=== PATIENT | female | born 1995 | race Caucasian/White ===

== ENCOUNTER → 2017-02-19 | Outpatient (CLI) | payer OTHER ==
[~2017-02-19] MED LIST: GLIP5TAB8 PO; LOTR1CRE3 TOPICAL; METF1000 PO
== END ==
LOC: HPND 08:18
PROVIDERS: ATTEND Obstetrics & Gynecology
DX: O24.111 Pre-existing type 2 diabetes mellitus, in pregnancy, first trimester (principal); O26.841 Uterine size-date discrepancy, first trimester
CPT/HCPCS: 76801

== ENCOUNTER → 2017-04-28 | Outpatient (CLI) | payer OTHER ==
[~2017-04-28] MED LIST changes: -LOTR1CRE3 TOPICAL; +OSEL75 PO
== END ==
LOC: HPND 08:47
PROVIDERS: ATTEND Obstetrics & Gynecology
DX: O24.112 Pre-existing type 2 diabetes mellitus, in pregnancy, second trimester (principal); Z36.82 Encounter for antenatal screening for nuchal translucency
CPT/HCPCS: 76811

== ENCOUNTER 2017-05-24 16:56 | Emergency (ER) | payer MEDICAID, OTHER ==
[~2017-05-24 16:56] MED LIST changes: -OSEL75 PO
--- NOTE | 2017-05-24 17:52 | PD ---
HPI Chief Complaint Clear vaginal discharge noted twice today Date Seen: May 24, 2017 Time Seen: 17:45 Travel History International Travel<30 Days: No Contact w/Intl Traveler<30Days: No Known Affected Area: No History of Present Illness HPI 22-year-old [address] García for care presents complaining of 2 episodes of small amount of clear discharge noted per vagina today. None noted prior. Her baby is active she has no other complaints or problems no pain bleeding or leakage of fluid Weeks Gestation: 22 Para: 0 : 2 Miscarriage: 1 History Past Medical History Narrative Medical Type 2 diabetes on metformin and glyburide p.o. Obstetric History Obstetric History 1 early loss Social History Alcohol Use: No Tobacco Use: No Substance Abuse: No Allergies-Medications (Allergen,Severity, Reaction): Coded Allergies: No Known Allergies (Verified Allergy, Unknown, 03/23/17) Home Meds Reported Medications Glipizide (Glipizide) 5 Mg Tab, 5 MG PO BIDAC for Blood Sugar Management, #60 TAB 0 Refills Take 30 minutes before a meal 02/01/17 Metformin (Metformin) 1,000 Mg Tab, 1000 MG PO BIDPC for Blood Sugar Management , #60 TAB 0 Refills 02/01/17 Review of Systems General / Constitutional: No: Fever, Weight Gain, Chills, Other Eyes: No: Diploplia, Blurred Vision, Visual changes, Pain, Photophobia HENT: No: Headaches, Vertigo, Lightheadedness Cardiovascular: No: Irregular Rhythm, Chest Pain or Discomfort, Palpitations, Tachycardia, Syncope, Varicosities, Edema, Cyanosis Respiratory: No: Cough, Short of Breath, Other Gastrointestinal: No: Nausea, Vomiting, Diarrhea Genitourinary: Discharge, No: Decreased Urinary Output, Oliguria Musculoskeletal: No: Limited ROM, Weakness, Cramping, Edema, Pain Skin: No Rash, No Itching, No Dryness, No Lumps, No Change in Pigmentation, No Change in Nails, No Alopecia, No Lesions Neurologic: No: Weakness, Dizziness, Syncope, Focal Abnormalities, Coordination Problem, Headache, Slurred Speech, Seizures Psychiatric: No: Depression, Suicidal Ideations, Homicidal Ideation Endocrine: No: Heat Intolerance, Cold Intolerance, Polydipsia, Polyuria, Other Physical Exam Narrative GENERAL: Well-nourished, well-developed patient. SKIN: Warm and dry. HEAD: Normocephalic and atraumatic. EYES: No scleral icterus. No injection or drainage. ENT: No nasal drainage noted. Mucous membranes pink. Airway patent. NECK: Supple, trachea midline. No JVD. CARDIOVASCULAR: Regular rate and rhythm without murmurs, gallops, or rubs. RESPIRATORY: Breath sounds equal bilaterally. No accessory muscle use. BREASTS: Bilateral exam showed no masses , no retractions, no nipple discharge. ABDOMEN/GI: Abdomen soft, non-tender, bowel sounds present, no rebound, no guarding Gravid to [-22] weeks size Fundal Height: [-22] GENITOURINARY: External Genitalia: intact and normal in appearance Speculum exam done--no infection or discharge noted in the vagina Cervix: [Posterior-] Dilatation: [Closed-] Effacement: [Thick-] Station: [-3] Membranes: [intact Uterine Contractions: [no reg ctx-] FHT's: 140s EXTREMITIES: No cyanosis or edema. BACK: Nontender without obvious deformity. No CVA tenderness. NEUROLOGICAL: Awake and alert. Motor and sensory grossly within normal limits. Five out of 5 muscle strength in all muscle groups. Normal speech. MDM Interpretation(s) 22-year-old at 22 weeks she has had 2 small episodes of some clear vaginal discharge noted today. She has had no bleeding or leakage of fluid no pain, on exam there is no infection of the vagina only very minimal amount of watery discharge which would be consistent with a physiologic estrogen driven watery discharge. FHT 140s Plan Plan to discharge patient home follow-up with her OB provider Diagnosis Diagnosis: Primary Impression: Vaginal discharge during in second trimester Additional Impression: 22 weeks gestation of Disposition: DISCHARGE HOME Condition: Stable Byron Miller II, MD May 24, 2017 17:52
== END 2017-05-24 18:05 | disposition home or self-care (01) ==
LOC: HOBED 16:56
DX: O26.892 Other specified pregnancy related conditions, second trimester (principal); N89.8 Other specified noninflammatory disorders of vagina; O24.912 Unspecified diabetes mellitus in pregnancy, second trimester; Z3A.22 22 weeks gestation of pregnancy; Z79.84 Long term (current) use of oral hypoglycemic drugs
CPT/HCPCS: 99284

== ENCOUNTER → 2017-05-26 | Outpatient (CLI) | payer MEDICAID, OTHER | LOC: HPND 08:31 | PROVIDERS: ATTEND Obstetrics & Gynecology | DX: O24.112 Pre-existing type 2 diabetes mellitus, in pregnancy, second trimester (principal) | CPT/HCPCS: 76816; 76825; 76827; 93325 ==

== ENCOUNTER → 2017-06-09 | Outpatient (CLI) | payer MEDICAID | LOC: CDED 08:30 | PROVIDERS: ATTEND Obstetrics & Gynecology | DX: O24.112 Pre-existing type 2 diabetes mellitus, in pregnancy, second trimester (principal) | CPT/HCPCS: 97802 ==

== ENCOUNTER 2017-06-11 10:03 | Emergency (ER) | payer MEDICAID ==
--- NOTE | 2017-06-11 11:06 | PD ---
HPI Chief Complaint Abdominal pain for 2 days Date Seen: June 11, 2017 Time Seen: 10:55 Travel History International Travel<30 Days: No Contact w/Intl Traveler<30Days: No Known Affected Area: No History of Present Illness HPI Patient is a 22-year-old at [address] García for care, she has had abdominal pain that is wax and wane for the last 2-1/ [address] García yesterday in the office and was evaluated but she has continued to be uncomfortable so she presents today. Denies leakage of fluid or bleeding, no contractions seen, heart rate tracing is reactive Weeks Gestation: 25 Para: 0 : 2 Miscarriage: 1 History Past Medical History Narrative Medical Gestational diabetes on on metformin and glipizide Obstetric History Obstetric History 1 early loss in the first trimester Social History Alcohol Use: No Tobacco Use: No Substance Abuse: No Allergies-Medications (Allergen,Severity, Reaction): Coded Allergies: No Known Allergies (Verified Allergy, Unknown, 03/23/17) Home Meds Reported Medications Glipizide (Glipizide) 5 Mg Tab, 5 MG PO BIDAC for Blood Sugar Management, #60 TAB 0 Refills Take 30 minutes before a meal 02/01/17 Metformin (Metformin) 1,000 Mg Tab, 1000 MG PO BIDPC for Blood Sugar Management , #60 TAB 0 Refills 02/01/17 Review of Systems General / Constitutional: No: Fever, Weight Gain, Chills, Other Eyes: No: Diploplia, Blurred Vision, Visual changes, Pain, Photophobia HENT: No: Headaches, Vertigo, Lightheadedness Cardiovascular: No: Irregular Rhythm, Chest Pain or Discomfort, Palpitations, Tachycardia, Syncope, Varicosities, Edema, Cyanosis Respiratory: No: Cough, Short of Breath, Other Gastrointestinal: Abdominal Pain, No: Nausea, Vomiting, Diarrhea Genitourinary: No: Decreased Urinary Output, Oliguria Musculoskeletal: No: Limited ROM, Weakness, Cramping, Edema, Pain Skin: No Rash, No Itching, No Dryness, No Lumps, No Change in Pigmentation, No Change in Nails, No Alopecia, No Lesions Neurologic: No: Weakness, Dizziness, Syncope, Focal Abnormalities, Coordination Problem, Headache, Slurred Speech, Seizures Psychiatric: No: Depression, Suicidal Ideations, Homicidal Ideation Endocrine: No: Heat Intolerance, Cold Intolerance, Polydipsia, Polyuria, Other Physical Exam Narrative GENERAL: Well-nourished, well-developed patient. SKIN: Warm and dry. HEAD: Normocephalic and atraumatic. EYES: No scleral icterus. No injection or drainage. ENT: No nasal drainage noted. Mucous membranes pink. Airway patent. NECK: Supple, trachea midline. No JVD. CARDIOVASCULAR: Regular rate and rhythm without murmurs, gallops, or rubs. RESPIRATORY: Breath sounds equal bilaterally. No accessory muscle use. BREASTS: Bilateral exam showed no masses , no retractions, no nipple discharge. ABDOMEN/GI: Abdomen soft slightly tender in the right lower quadrant, no rebound pain- , bowel sounds present, no rebound, no guarding Gravid to [-25] weeks size Fundal Height: [25-] GENITOURINARY: External Genitalia: intact and normal in appearance BUS glands: [-] Cervix: [post-] Dilatation: [0-] Effacement: [0-] Station: [-3] ] Membranes: [intact ] Uterine Contractions: [none-] FHT's: Category: [1-] Baseline: [133-] Reactive: [-R] Variability: [-mod] Decels: [none-] EXTREMITIES: No cyanosis 1 +edema.pretibial BACK: Nontender without obvious deformity. No CVA tenderness. NEUROLOGICAL: Awake and alert. Motor and sensory grossly within normal limits. Five out of 5 muscle strength in all muscle groups. Normal speech. Data Data Labs Urine dip on OB ED is negative MDM Interpretation(s) Patient is 22-year-old at 25 weeks he goes to the [facility] clinic. Patient presents with 2-3 days of abdominal pain, no bleeding, no leakage, heart rate tracing is reactive, no contractions seen. Urine negative. Cervix closed thick and high. Pain is likely soft tissue strain and pain related to activity. She has not taken any Tylenol, only medications given by Dr. García. She is gestational diabetic and on 2 drugs po, random blood sugar --112 . Plan Plan is for patient to be discharged home to bedrest, heating pad for hot bath for symptom relief, Tylenol liberally for pain. Increase her p.o. fluids for hydration and follow-up with her OB provider Diagnosis Diagnosis: Primary Impression: Abdominal pain during in second trimester Additional Impressions: Gestational diabetes mellitus 25 weeks gestation of Disposition: 01 DISCHARGE HOME Condition: Stable Byron Miller II, MD June 11, 2017 11:06
== END 2017-06-11 11:27 | disposition home or self-care (01) ==
LOC: HOBED 10:03
DX: O26.892 Other specified pregnancy related conditions, second trimester (principal); R10.9 Unspecified abdominal pain; O24.419 Gestational diabetes mellitus in pregnancy, unspecified control; Z3A.25 25 weeks gestation of pregnancy
CPT/HCPCS: 82948; 99283

== ENCOUNTER → 2017-06-25 | Outpatient (CLI) | DX: O24.112 Pre-existing type 2 diabetes mellitus, in pregnancy, second trimester (principal) ==

== ENCOUNTER → 2017-07-10 | Emergency (ER) | payer MEDICAID ==
--- NOTE | 2017-07-11 00:40 | PD ---
HPI Chief Complaint vaginal spotting Date Seen: Jul 11, 2017 Time Seen: 00:33 Travel History International Travel<30 Days: No Contact w/Intl Traveler<30Days: No Known Affected Area: No History of Present Illness HPI pt. is a 22 y/o @ 29 weeks present w/ c/o vag spotting. pt. w/ h/o type 2 dm on glyburide and metformin. pt. states had one episode of vag spotting on paper when wiped tonight. denies ctxs, +FM. pt. have u/s that show anterior palcenta and no previa. Weeks Gestation: 29 Para: 0 : 2 Miscarriage: 1 History Past Medical History Medical History: Denies Significant Hx Obstetric History Obstetric History , sab x 1 Past Surgical History Surgical History: No Previous Surgery Family History Family History: Negative Social History Alcohol Use: No Tobacco Use: No Substance Abuse: No Allergies-Medications (Allergen,Severity, Reaction): Coded Allergies: No Known Allergies (Verified Allergy, Unknown, 03/23/17) Home Meds Reported Medications Glipizide (Glipizide) 5 Mg Tab, 5 MG PO BIDAC for Blood Sugar Management, #60 TAB 0 Refills Take 30 minutes before a meal 02/01/17 Metformin (Metformin) 1,000 Mg Tab, 1000 MG PO BIDPC for Blood Sugar Management , #60 TAB 0 Refills 02/01/17 Review of Systems Except as stated in HPI: all other systems reviewed are Neg Physical Exam Narrative GENERAL: Well-nourished, well-developed patient. SKIN: Warm and dry. HEAD: Normocephalic and atraumatic. EYES: No scleral icterus. No injection or drainage. ENT: No nasal drainage noted. Mucous membranes pink. Airway patent. NECK: Supple, trachea midline. No JVD. CARDIOVASCULAR: Regular rate and rhythm without murmurs, gallops, or rubs. RESPIRATORY: Breath sounds equal bilaterally. No accessory muscle use. BREASTS: Bilateral exam showed no masses , no retractions, no nipple discharge. ABDOMEN/GI: Abdomen soft, non-tender, bowel sounds present, no rebound, no guarding Gravid GENITOURINARY: External Genitalia: intact and normal in appearance sse: ectropion irritated. no blood in vault. Uterine Contractions: none FHT's: Category: 1 Reactive: + Variability: mod EXTREMITIES: No cyanosis or edema. BACK: Nontender without obvious deformity. No CVA tenderness. NEUROLOGICAL: Awake and alert. Motor and sensory grossly within normal limits. Five out of 5 muscle strength in all muscle groups. Normal speech. Data Data Vital Signs Reviewed: Yes Orders Orders Urinalysis - C+S If Indicated (07/11/17 00:31) [employer] Clear For Discharge (07/11/17 ) [facility] Medical Record Reviewed: Yes Plan pt. w/o obvious vb, and irritated ectropion. pt. to be d/c to home. given precauions for return. all ? answered. f/u as sched. Diagnosis Diagnosis: Primary Impression: Vaginal bleeding affecting early Additional Impression: 29 weeks gestation of Disposition: DISCHARGE HOME Jair Paula Jr., MD Jul 11, 2017 00:40
[2017-07-11 00:52] LABS: BILIRUBIN, URINE NEG (NEG); BLOOD, URINE NEG (NEG); GLUCOSE,URINE 1000 mg/dL (NEG); KETONE, URINE NEG (NEG); NITRITE,URINE NEG (NEG); SQUAMOUS EPITHELIAL CELL URINE 1 /hpf (0-5); URINE COLOR LIGHT-YELLOW (YELLW/STRAW); URINE LEUKOCYTE ESTERASE NEG (NEG)
== END | disposition home or self-care (01) ==
LOC: HOBED 23:47
DX: O46.93 Antepartum hemorrhage, unspecified, third trimester (principal); O24.913 Unspecified diabetes mellitus in pregnancy, third trimester; Z3A.29 29 weeks gestation of pregnancy; Z79.84 Long term (current) use of oral hypoglycemic drugs
CPT/HCPCS: 81001; 99284

== ENCOUNTER → 2017-07-26 | Outpatient (CLI) | payer MEDICAID | LOC: HPND 09:30 | PROVIDERS: ATTEND Obstetrics & Gynecology | DX: O24.112 Pre-existing type 2 diabetes mellitus, in pregnancy, second trimester (principal) | CPT/HCPCS: 76816 ==

== ENCOUNTER 2017-08-15 09:48 | Inpatient (IN) ==
[2017-08-15] MEDS ORDERED: Azithromycin 250 MG Tablet PO ONE (10:28)
[2017-08-15] MEDS ORDERED: Acetaminophen 325 MG Tablet PO PRN (10:34)
--- NOTE | 2017-08-15 11:04 | ED ---
History of Present Illness Primary Care Physician: No Primary Care Physician History of Present Illness: 22-year-old 2 para 0 at 34+ weeks gestation who comes today with a complaint of decreased movement. She also reports that she has been leaking small amounts of fluid since yesterday afternoon. She denies any contractions or bleeding. No fever chills or abdominal pain. She is a pre-gestational diabetic who is followed by Dr. García. She reports good glycemic control on glyburide and metformin. Total # of Miscarriage(s): 1 - Inpatient Certification If this patient has been admitted as an Inpatient: I certify that the inpatient services were ordered in accordance with Medicare regulations governing the order. This includes certification that hospital inpatient services are reasonable and necessary and in the case of services not specified as inpatient-only under 42 CFR 419.22(n), that they are appropriately provided as inpatient services in accordance to with the 2-midnight benchmark under 43 CFR 412.3(e) Estimated Total Length of Stay (Days): 7 Plans for Post Hospital Care: Home Review of Systems All other systems reviewed negative except as stated in HPI [facility] - Medical / Surgical Hx Neg / Unobtainable Surgical History: No Previous Surgery - Medical History Medical History: Medical History (Last Updated 08/15/17 @ 11:01 by Lonnie Neal MD) Diabetes - Tobacco History Smoking Status: Never smoker - Travel History Recent Travel in the [place] Within the Last 8 Weeks: No Recent Travel Out of the Country Within the Last 8 Weeks: No Medications and Allergies Active Medications: Active Medications Acetaminophen (Tylenol) 650 mg PO Q4H PRN PRN Reason: PAIN SCALE 1 TO 10 Betamethasone Acet/Betameth SodPhos (Celestone Soluspan Inj) 12 mg IM Q24H [facility] Stop: 08/16/17 23:59 Calcium Gluconate (Calcium Gluconate Inj) 1 gm IV.PUSH ONCE PRN PRN Reason: Magnesium toxicity Glyburide (Diabeta) 5 mg PO BID [facility] Ampicillin Sodium 2,000 mg/ (Sodium Chloride) 100 mls @ 400 mls/hr IV.SIG Q6H [facility] Stop: 08/17/17 10:59 Lactated Ringer's (Lr 1000 Ml Inj) 1,000 mls @ 125 mls/hr IV.CONT .Q8H [facility] Lactated Ringer's (Lr 1000 Ml Inj) 1,000 mls @ 75 mls/hr IV.CONT .[id number] [facility] Non-Formulary Medication (Metformin [Metformin]) 1,000 mg PO BID [facility] Ondansetron HCl (Zofran Odt) 4 mg PO Q6H PRN PRN Reason: NAUSEA OR VOMITING Vit/Calcium/Iron/Folic Ac (Stuartnatal Plus 3) 1 tab PO DAILY [facility] Sodium Chloride (Ns Flush) 2 ml IV.FLUSH BID [facility] Sodium Chloride (Ns Flush) 2 ml IV.FLUSH Q24H [facility] Stop: 08/16/17 10:31 Sodium Chloride (Ns Flush) 2 ml IV.FLUSH BID [facility] Sodium Chloride (Ns Flush) 2 ml IV.FLUSH PRN PRN PRN Reason: FLUSH AFTER USING IV ACCESS Allergies Allergy/AdvReac Type Severity Reaction Status Date / Time No Known Drug Allergies Allergy NONE Verified 08/15/17 10:19 Home Medications Medication Instructions Recorded Confirmed Type glyburide PO BID 08/15/17 History metformin 1,000 mg PO BID 08/15/17 08/15/17 History Exam Vital signs: Vital Signs 08/15/17 10:05 08/15/17 10:06 08/15/17 10:20 Temperature 97.7 F Pulse Rate 93 H 94 H Respiratory Rate 18 Blood Pressure 150/85 H 146/83 H 08/15/17 10:31 Temperature Pulse Rate 81 Respiratory Rate Blood Pressure 156/89 H Intake & Output 08/14/17 08/15/17 08/15/17 18:59 06:59 18:59 Weight 89.499 kg Narrative: GENERAL: Well-nourished, well-developed patient. SKIN: Warm and dry. HEAD: Normocephalic and atraumatic. EYES: No scleral icterus. No injection or drainage. ENT: No nasal drainage noted. Mucous membranes pink. Airway patent. NECK: Supple, trachea midline. No JVD. CARDIOVASCULAR: Regular rate and rhythm without murmurs, gallops, or rubs. RESPIRATORY: Breath sounds equal bilaterally. No accessory muscle use. ABDOMEN/GI: Abdomen soft, non-tender, bowel sounds present, no rebound, no guarding Gravid to [-] weeks size Fundal Height: [-36] GENITOURINARY: External Genitalia: intact and normal in appearance BUS glands: [Negative-] Cervix: [-] Dilatation: [-Closed] Effacement: [50-] Station: [-3-] Presentation: [-Breech] Membranes: [ruptured] Uterine Contractions: [None-] FHT's: Category: [-1] Baseline: [-] Reactive: [Yes-] Variability: [-] Decels: [-] EXTREMITIES: No cyanosis or edema. BACK: Nontender without obvious deformity. No CVA tenderness. NEUROLOGICAL: Awake and alert. Motor and sensory grossly within normal limits. Five out of 5 muscle strength in all muscle groups. Normal speech. Ultrasound confirms breech presentation, normal RADHA Discharge Plan - Discharge Disposition Patient Disposition: 30 Still Patient - Physicians Team ED Provider: Luiza Naranjo Primary Care Provider: Primary Care Deonna Sanders Assessment and Plan - Plan Assessment: 34+ week intrauterine with premature rupture membranes, #2 breech presentation, #3 pre-gestational diabetes, #4 elevated blood pressures, rule out preeclampsia Plan: Admit for management. Antibiotic therapy and steroid administration. CBC CMP and catheterized protein creatinine ratio for preeclamptic evaluation. Continue diabetic management. Dr. Sousa was made aware of the patient's admission and will assume care.
--- NOTE | 2017-08-15 11:11 | P.HPOB ---
Patient Name: Tiffanie Barker Date of : [birth year] Patient Status: Inpatient Attending Provider: Brittany Sousa Date: 08/15/17 10:56 Initialization Date: 08/15/17 10:56 History of Present Illness Primary Care Physician: No Primary Care Physician History of Present Illness: 22-year-old 2 para 0 at 34+ weeks gestation who comes today with a complaint of decreased movement. She also reports that she has been leaking small amounts of fluid since yesterday afternoon. She denies any contractions or bleeding. No fever chills or abdominal pain. She is a pre-gestational diabetic who is followed by Dr. García. She reports good glycemic control on glyburide and metformin. Total # of Miscarriage(s): 1 - Inpatient Certification If this patient has been admitted as an Inpatient: I certify that the inpatient services were ordered in accordance with Medicare regulations governing the order. This includes certification that hospital inpatient services are reasonable and necessary and in the case of services not specified as inpatient-only under 42 CFR 419.22(n), that they are appropriately provided as inpatient services in accordance to with the 2-midnight benchmark under 43 CFR 412.3(e) Estimated Total Length of Stay (Days): 7 Plans for Post Hospital Care: Home Review of Systems All other systems reviewed negative except as stated in HPI [facility] - Medical / Surgical Hx Neg / Unobtainable Surgical History: No Previous Surgery - Medical History Medical History: Medical History (Last Updated 08/15/17 @ 11:01 by Lonnie Neal MD) Diabetes - Tobacco History Smoking Status: Never smoker - Travel History Recent Travel in the [place] Within the Last 8 Weeks: No Recent Travel Out of the Country Within the Last 8 Weeks: No Medications and Allergies Active Medications: Active Medications Acetaminophen (Tylenol) 650 mg PO Q4H PRN PRN Reason: PAIN SCALE 1 TO 10 Betamethasone Acet/Betameth SodPhos (Celestone Soluspan Inj) 12 mg IM Q24H [facility] Stop: 08/16/17 23:59 Calcium Gluconate (Calcium Gluconate Inj) 1 gm IV.PUSH ONCE PRN PRN Reason: Magnesium toxicity Glyburide (Diabeta) 5 mg PO BID [facility] Ampicillin Sodium 2,000 mg/ (Sodium Chloride) 100 mls @ 400 mls/hr IV.SIG Q6H [facility] Stop: 08/17/17 10:59 Lactated Ringer's (Lr 1000 Ml Inj) 1,000 mls @ 125 mls/hr IV.CONT .Q8H [facility] Lactated Ringer's (Lr 1000 Ml Inj) 1,000 mls @ 75 mls/hr IV.CONT .[id number] [facility] Non-Formulary Medication (Metformin [Metformin]) 1,000 mg PO BID [facility] Ondansetron HCl (Zofran Odt) 4 mg PO Q6H PRN PRN Reason: NAUSEA OR VOMITING Vit/Calcium/Iron/Folic Ac (Stuartnatal Plus 3) 1 tab PO DAILY [facility] Sodium Chloride (Ns Flush) 2 ml IV.FLUSH BID [facility] Sodium Chloride (Ns Flush) 2 ml IV.FLUSH Q24H [facility] Stop: 08/16/17 10:31 Sodium Chloride (Ns Flush) 2 ml IV.FLUSH BID [facility] Sodium Chloride (Ns Flush) 2 ml IV.FLUSH PRN PRN PRN Reason: FLUSH AFTER USING IV ACCESS Allergies Allergy/AdvReac Type Severity Reaction Status Date / Time No Known Drug Allergies Allergy NONE Verified 08/15/17 10:19 Home Medications Medication Instructions Recorded Confirmed Type glyburide PO BID 08/15/17 History metformin 1,000 mg PO BID 08/15/17 08/15/17 History Exam Vital signs: Vital Signs 08/15/17 10:05 08/15/17 10:06 08/15/17 10:20 Temperature 97.7 F Pulse Rate 93 H 94 H Respiratory Rate 18 Blood Pressure 150/85 H 146/83 H 08/15/17 10:31 Temperature Pulse Rate 81 Respiratory Rate Blood Pressure 156/89 H Intake & Output 08/14/17 08/15/17 08/15/17 18:59 06:59 18:59 Weight 89.499 kg Narrative: GENERAL: Well-nourished, well-developed patient. SKIN: Warm and dry. HEAD: Normocephalic and atraumatic. EYES: No scleral icterus. No injection or drainage. ENT: No nasal drainage noted. Mucous membranes pink. Airway patent. NECK: Supple, trachea midline. No JVD. CARDIOVASCULAR: Regular rate and rhythm without murmurs, gallops, or rubs. RESPIRATORY: Breath sounds equal bilaterally. No accessory muscle use. ABDOMEN/GI: Abdomen soft, non-tender, bowel sounds present, no rebound, no guarding Gravid to [-] weeks size Fundal Height: [-36] GENITOURINARY: External Genitalia: intact and normal in appearance BUS glands: [Negative-] Cervix: [-] Dilatation: [-Closed] Effacement: [50-] Station: [-3-] Presentation: [-Breech] Membranes: [ruptured] Uterine Contractions: [None-] FHT's: Category: [-1] Baseline: [-] Reactive: [Yes-] Variability: [-] Decels: [-] EXTREMITIES: No cyanosis or edema. BACK: Nontender without obvious deformity. No CVA tenderness. NEUROLOGICAL: Awake and alert. Motor and sensory grossly within normal limits. Five out of 5 muscle strength in all muscle groups. Normal speech. Ultrasound confirms breech presentation, normal RADHA Discharge Plan - Discharge Disposition Patient Disposition: 30 Still Patient - Physicians Team Primary Care Provider: Primary Care Deonna Sanders Assessment and Plan - Plan Assessment: 34+ week intrauterine with premature rupture membranes, #2 breech presentation, #3 pre-gestational diabetes, #4 elevated blood pressures, rule out preeclampsia Plan: Admit for management. Antibiotic therapy and steroid administration. CBC CMP and catheterized protein creatinine ratio for preeclamptic evaluation. Continue diabetic management. Dr. Sousa was made aware of the patient's admission and will assume care.
[2017-08-15] MEDS ORDERED: Dextrose 50% in Water 50 ML Vial IV.PUSH PRN (11:34)
--- NOTE | 2017-08-15 11:41 | P.OBGPN ---
Called by OB Hospitalist re: admission of pt for PPROM//breech. To bedside to evaluate pt and review plan of care. 1) PPROM at 34 wks: pt thinks water broke 08/14/17 around 6pm; has been clear; afebrile; GBS swab performed, ppx antibiotics ordered; bedrest for now; order NICU consult and growth u/s, breech on bedside scan by Dr. Toro on admit; d/ w pt she will remain hospitalized until delivery 2) T2 diabetes: continue home metformin 1000mg bid and glyburide 5mg bid; d/w pt anticipate elevation of BS with betamethasone administration, sliding scale ordered; check fasting & 2h PP blood sugars 3) elevated BP on admit: [facility] labs ordered as well as 24h urine; d/w pt recommend catheterized specimen to prevent contamination from amniotic fluid; will plan for catheter now for 24h urine collection 4) status: male, breech, PPROM 08/14/17 @ 6pm; pt aware will need to be delivered via due to presentation if goes into labor
[2017-08-15] MEDS: Betamethasone Sod Phos/Acetate Inj 30 MG/5 ML Vial IM SCH (11:54)
[2017-08-15 12:31] LABS: Baso % (Auto) 0.4 % (0.0-2.0); Eos # (Auto) 0.1 th/mm3 (0.0-0.4); Eos % (Auto) 0.7 % (0.0-4.0); Hematocrit 38.2 % (35.0-46.0); Lymph # (Auto) 2.7 th/mm3 (1.0-4.8); Lymph % (Auto) 22.2 % (9.0-44.0); Mean Corpuscular Hemoglobin 27.6 pg (27.0-34.0); Mean Corpuscular Volume 81.2 fL (80.0-100.0); Mean Platelet Volume 10.4 fL (7.0-11.0); Mono # (Auto) 0.7 th/mm3 (0.0-0.9); Mono % (Auto) 5.4 % (0.0-8.0); Neut # (Auto) 8.7 th/mm3 (1.8-7.7); Neut % (Auto) 71.3 % (16.0-70.0); Platelet Count 255 th/mm3 (150-450); Red Cell Distribution Width 13.1 % (11.6-17.2); White Blood Count 12.2 th/mm3 (4.0-11.0)
[2017-08-15 12:54] LABS: Albumin 2.6 g/dL (3.4-5.0); Anion Gap 13 meq/L (5-15); Aspartate Aminotransferase 17 U/L (16-38); Blood Urea Nitrogen 9 mg/dL (7-18); Carbon Dioxide 19.6 meq/L (21.0-32.0); Chloride 107 meq/L (98-107); Glomerular Filtration Rate Greater Than 89 mL/min (>89); Glucose,Random 86 mg/dL (74-106); Sodium 140 meq/L (136-145)
[2017-08-15 12:59] LABS: Alanine Aminotransferase 22 U/L (9-42); Alkaline Phosphatase 109 U/L (45-117); Total Protein 6.8 g/dL (6.4-8.2)
[2017-08-15 13:00] LABS: Amphetamine Screen,Urine Neg (Neg); Barbiturate Screen,Urine Neg (Neg); Cannabinoid Screen,Urine Neg (Neg); Cocaine Screen,Urine Neg (Neg)
[2017-08-15 13:03] LABS: Bilirubin,Urine Negative (Negative); Clarity,Urine Hazy (Clear); Color,Urine Yellow (Yellw/Straw); Glucose,Urine (UA) Negative (Negative); Leukocyte Esterase,Urine Negative (Negative); Mucus,Urine Few /lpf (Occasional); Nitrite,Urine Negative (Negative); Specific Gravity,Urine 1.011 (1.002-1.035); Squamous Epithelial Cell,Urine 1 /hpf (0-5)
[2017-08-15 13:19] LABS: Opiate Screen,Urine Neg (Neg)
[2017-08-15 13:27] LABS: Protein/Creatinine Ratio,Urine 0.25 (0.00-0.14)
[2017-08-15] MEDS: Insulin NovoLIN Regular Correctional Sugar Inj SQ SCH (17:51)
--- NOTE | 2017-08-15 17:53 | P.CONNEO ---
Maternal History: 22 year old, 1 Para 0, F at 34 weeks gestation with diagnosis of PPROM, Gestational hypertension, Gestational Diabetes. Mother admitted to Labor and Delivery on 08/14, secondary to PPROM pm 08/14 around 6pm and Hypertension - currently having pre-eclampsia work up. Maternal Medications: Glyberide, Metformin, PNV, Ampicillin, Zithromax, Betamethasone on 08/15/17 Social: Marital status: , speaks only Malay Discussion: The Nurse Practitioner met with mother regarding threatened delivery at 34 weeks gestation secondary to PPROM and Possible Pre-eclampsia.. This consultation included generalized care of the baby in the NICU, common problems and complications. Parents were provided with informational sheets regarding the development of their baby currently, an introduction to the NICU, and what to expect at the delivery. Parents agreed that they would review the information as soon as possible. The documents provided reviewed the expectations with delivery of an infant under these circumstances including delivery room atmosphere, resuscitation and stabilization. Also included in this review is the admission process to the NICU, including possible procedures such as intubation and placement of umbilical catheter. Additionally, there was a discussion of the disease processes that may affect an infant of this gestation, including but not limited to respiratory distress, infection, hypothermia, hypoglycemia, apnea/bradycardia, and nutritional concerns. Discussion detailed various forms of respiratory support for immature lungs including use of surfactant and placement. Discussion focused on CPAP and/or ventilator support as needed for an of this gestation. There was a review of nutritional support challenges including IV and gavage feeding. There was discussion regarding possible feeding intolerances. Breast feeding and early breast milk pumping was strongly encouraged - mom plans to breast feed. Explained that is at risk for hyperbilirubinemia and may require treatment with phototherapy. Support systems in place at [facility] were reviewed and included , Case Management and Ministry which the family may utilize. Expected discharge would likely occur closer to the due date if the infant has an uncomplicated hospitalization. Discussed discharge criteria (apnea free, feeding well, gaining weight, stable temps) Greater than 50% of the consultation time was spent with the patient. Total time of consult was 55 minutes. Greater than 50% of the consultation time was spent with the patient.
--- NOTE | 2017-08-15 18:15 | P.OBGPN ---
S: The patient notes mild contractions. I was asked by Dr. Corrales to perform a speculum examination to see if dilation was occurring. Objective: Sterile speculum examination was performed which demonstrates a closed cervix. Assessment: 34+ week premature rupture membranes without evidence of cervical change Plan: Continue current management.
[2017-08-16] MEDS: Insulin NovoLIN Regular Correctional Sugar Inj SQ SCH ×6 (03:22→20:52)
[2017-08-16 05:49] LABS: Hematocrit 37.7 % (35.0-46.0); Hemoglobin 12.9 gm/dL (11.6-15.3); Mean Corpuscular HGB Conc 34.2 % (32.0-36.0); Mean Platelet Volume 10.3 fL (7.0-11.0); Platelet Count 263 th/mm3 (150-450); Red Cell Distribution Width 13.1 % (11.6-17.2)
[2017-08-16 06:11] LABS: Albumin 2.4 g/dL (3.4-5.0); Uric Acid 5.6 mg/dl (2.6-6.0)
[2017-08-16 06:13] LABS: Total Protein 6.1 g/dL (6.4-8.2)
--- NOTE | 2017-08-16 07:47 | P.OBANTE ---
Subjective Interval History: pt comfortable, FS 67, +FM , no ctx, +LOF, no VB Objective Vital Signs and I&O: Vital Signs 08/15/17 10:05 08/15/17 10:06 08/15/17 10:20 Temperature 97.7 F Pulse Rate 93 H 94 H Respiratory Rate 18 Blood Pressure 150/85 H 146/83 H 08/15/17 10:31 08/15/17 11:05 08/15/17 11:15 Temperature Pulse Rate 81 100 H Respiratory Rate 17 Blood Pressure 156/89 H 146/88 H 08/15/17 12:05 08/15/17 12:23 08/15/17 12:24 Temperature Pulse Rate 84 85 Respiratory Rate 18 Blood Pressure 159/93 H 08/15/17 12:44 08/15/17 12:46 08/15/17 12:48 Temperature 98.1 F Pulse Rate 84 Respiratory Rate 17 Blood Pressure 158/96 H 08/15/17 14:00 08/15/17 14:27 08/15/17 14:50 Temperature Pulse Rate 92 H Respiratory Rate 17 18 Blood Pressure 155/90 H 08/15/17 15:00 08/15/17 15:35 08/15/17 16:33 Temperature 97.8 F 97.9 F Pulse Rate Respiratory Rate 17 Blood Pressure 08/15/17 16:49 08/15/17 18:30 08/15/17 19:33 Temperature 98.0 F 98.1 F Pulse Rate 92 H Respiratory Rate 18 Blood Pressure 156/86 H 08/15/17 19:34 08/15/17 21:38 08/15/17 22:27 Temperature 97.9 F Pulse Rate 97 H 89 Respiratory Rate 20 Blood Pressure 133/75 151/85 H 08/16/17 01:43 08/16/17 03:47 08/16/17 05:50 Temperature 98.2 F 98.7 F 98.2 F Pulse Rate 97 H 92 H Respiratory Rate 16 18 Blood Pressure 131/68 140/80 08/16/17 07:40 Temperature Pulse Rate Respiratory Rate 18 Blood Pressure Intake & Output 08/15/17 08/16/17 08/16/17 18:59 06:59 18:59 Intake Total 100 / 100 2200 / 2200 100 / 100 Balance 100 / 100 2200 / 2200 100 / 100 Weight 89.499 kg Intake: IV 100 / 100 2200 / 2200 100 / 100 LR 1000 mL Inj 1,000 ML @ 125 2000 / 2000 mls/hr IV.CONT .Q8H [facility] Rx#: [id number] Ampicillin Inj 2,000 MG In NS 100 / 100 200 / 200 100 / 100 Inj 100 ML @ 400 mls/hr IV.SIG Q6H [facility] Rx#:[id number] Lab and Micro Results: Laboratory Results - last 24 hr 08/15/17 08/15/17 08/15/17 11:14 11:16 11:16 WBC 12.2 H RBC 4.70 Hgb 13.0 Hct 38.2 MCV 81.2 MCH 27.6 MCHC 34.0 RDW 13.1 Plt Count 255 MPV 10.4 Neut % (Auto) 71.3 H Lymph % (Auto) 22.2 [place] % (Auto) 5.4 Eos % (Auto) 0.7 Baso % (Auto) 0.4 Neut # (Auto) 8.7 H Lymph # (Auto) 2.7 [place] # (Auto) 0.7 Eos # (Auto) 0.1 Baso # (Auto) 0.0 WBC Differential . Differential Comment Auto diff final Sodium 140 Potassium 4.0 Chloride 107 Carbon Dioxide 19.6 L Anion Gap 13 BUN 9 Creatinine 0.56 Estimated GFR Greater than 89 POC Glucose Random Glucose 86 Uric Acid Calcium 9.0 Total Bilirubin 0.3 Direct Bilirubin Indirect Bilirubin AST 17 ALT 22 Alkaline Phosphatase 109 Total Protein 6.8 Albumin 2.6 L Urine Color Urine Clarity Urine pH Ur Specific [place] Urine Protein Urine Glucose (UA) Urine Ketones Urine Occult Blood Urine Nitrate Urine Bilirubin Urine Urobilinogen Ur Leukocyte Esterase Urine RBC Urine WBC Ur Squamous Epith Cells Urine Mucus Micro UA Comment Urine Culture Comments Ur Random Creatinine U Random Total Protein Protein/Creatinin Ratio Urine Opiates Screen Ur Barbiturates Screen Ur Amphetamines Screen U Benzodiazepines Scrn Urine Cocaine Screen U Cannabinoids Screen Group B Strep (PCR) Blood Type O Positive Blood Type Recheck Required Antibody Screen Negative 08/15/17 08/15/17 08/15/17 11:28 12:00 12:00 WBC RBC Hgb Hct MCV MCH MCHC RDW Plt Count MPV Neut % (Auto) Lymph % (Auto) [place] % (Auto) Eos % (Auto) Baso % (Auto) Neut # (Auto) Lymph # (Auto) [place] # (Auto) Eos # (Auto) Baso # (Auto) WBC Differential Differential Comment Sodium Potassium Chloride Carbon Dioxide Anion Gap BUN Creatinine Estimated GFR POC Glucose Random Glucose Uric Acid Calcium Total Bilirubin Direct Bilirubin Indirect Bilirubin AST ALT Alkaline Phosphatase Total Protein Albumin Urine Color Urine Clarity Urine pH Ur Specific [place] Urine Protein Urine Glucose (UA) Urine Ketones Urine Occult Blood Urine Nitrate Urine Bilirubin Urine Urobilinogen Ur Leukocyte Esterase Urine RBC Urine WBC Ur Squamous Epith Cells Urine Mucus Micro UA Comment Urine Culture Comments Ur Random Creatinine 104 U Random Total Protein 25.6 H Protein/Creatinin Ratio 0.25 H Urine Opiates Screen Neg Ur Barbiturates Screen Neg Ur Amphetamines Screen Neg U Benzodiazepines Scrn Neg Urine Cocaine Screen Neg U Cannabinoids Screen Neg Group B Strep (PCR) Negative Blood Type Blood Type Recheck Antibody Screen 08/15/17 08/15/17 08/15/17 12:00 17:47 22:22 WBC RBC Hgb Hct MCV MCH MCHC RDW Plt Count MPV Neut % (Auto) Lymph % (Auto) [place] % (Auto) Eos % (Auto) Baso % (Auto) Neut # (Auto) Lymph # (Auto) [place] # (Auto) Eos # (Auto) Baso # (Auto) WBC Differential Differential Comment Sodium Potassium Chloride Carbon Dioxide Anion Gap BUN Creatinine Estimated GFR POC Glucose 140 H 108 Random Glucose Uric Acid Calcium Total Bilirubin Direct Bilirubin Indirect Bilirubin AST ALT Alkaline Phosphatase Total Protein Albumin Urine Color Yellow Urine Clarity Hazy H Urine pH 6.0 Ur Specific [place] 1.011 Urine Protein Negative Urine Glucose (UA) Negative Urine Ketones Negative Urine Occult Blood Small H Urine Nitrate Negative Urine Bilirubin Negative Urine Urobilinogen Less than 2 Ur Leukocyte Esterase Negative Urine RBC 7 H Urine WBC 1 Ur Squamous Epith Cells 1 Urine Mucus Few H Micro UA Comment Cath-culture not ind Urine Culture Comments Cath-cult not ind Ur Random Creatinine U Random Total Protein Protein/Creatinin Ratio Urine Opiates Screen Ur Barbiturates Screen Ur Amphetamines Screen U Benzodiazepines Scrn Urine Cocaine Screen U Cannabinoids Screen Group B Strep (PCR) Blood Type Blood Type Recheck Antibody Screen 08/16/17 08/16/17 08/16/17 05:02 05:02 05:56 WBC 13.0 H RBC 4.60 Hgb 12.9 Hct 37.7 MCV 82.0 MCH 28.0 MCHC 34.2 RDW 13.1 Plt Count 263 MPV 10.3 Neut % (Auto) Lymph % (Auto) [place] % (Auto) Eos % (Auto) Baso % (Auto) Neut # (Auto) Lymph # (Auto) [place] # (Auto) Eos # (Auto) Baso # (Auto) WBC Differential Differential Comment Sodium Potassium Chloride Carbon Dioxide Anion Gap BUN Creatinine Estimated GFR POC Glucose 80 Random Glucose Uric Acid 5.6 Calcium Total Bilirubin 0.4 Direct Bilirubin 0.1 Indirect Bilirubin 0.3 AST 16 ALT 19 Alkaline Phosphatase 101 Total Protein 6.1 L D Albumin 2.4 L Urine Color Urine Clarity Urine pH Ur Specific [place] Urine Protein Urine Glucose (UA) Urine Ketones Urine Occult Blood Urine Nitrate Urine Bilirubin Urine Urobilinogen Ur Leukocyte Esterase Urine RBC Urine WBC Ur Squamous Epith Cells Urine Mucus Micro UA Comment Urine Culture Comments Ur Random Creatinine U Random Total Protein Protein/Creatinin Ratio Urine Opiates Screen Ur Barbiturates Screen Ur Amphetamines Screen U Benzodiazepines Scrn Urine Cocaine Screen U Cannabinoids Screen Group B Strep (PCR) Blood Type Blood Type Recheck Antibody Screen 08/16/17 07:36 WBC RBC Hgb Hct MCV MCH MCHC RDW Plt Count MPV Neut % (Auto) Lymph % (Auto) [place] % (Auto) Eos % (Auto) Baso % (Auto) Neut # (Auto) Lymph # (Auto) [place] # (Auto) Eos # (Auto) Baso # (Auto) WBC Differential Differential Comment Sodium Potassium Chloride Carbon Dioxide Anion Gap BUN Creatinine Estimated GFR POC Glucose 67 L Random Glucose Uric Acid Calcium Total Bilirubin Direct Bilirubin Indirect Bilirubin AST ALT Alkaline Phosphatase Total Protein Albumin Urine Color Urine Clarity Urine pH Ur Specific [place] Urine Protein Urine Glucose (UA) Urine Ketones Urine Occult Blood Urine Nitrate Urine Bilirubin Urine Urobilinogen Ur Leukocyte Esterase Urine RBC Urine WBC Ur Squamous Epith Cells Urine Mucus Micro UA Comment Urine Culture Comments Ur Random Creatinine U Random Total Protein Protein/Creatinin Ratio Urine Opiates Screen Ur Barbiturates Screen Ur Amphetamines Screen U Benzodiazepines Scrn Urine Cocaine Screen U Cannabinoids Screen Group B Strep (PCR) Blood Type Blood Type Recheck Antibody Screen Physical Exam: GENERAL: Well-nourished, well-developed patient. CARDIOVASCULAR: Regular rate and rhythm without murmurs, gallops, or rubs. RESPIRATORY: Breath sounds equal bilaterally. No accessory muscle use. ABDOMEN/GI: Abdomen soft, non-tender. Fundus: [-] GENITOURINARY: External Genitalia: intact and normal in appearance Cervix: [-] deferred Dilatation: [-] Effacement: [-] Station: [-] Presentation: [-] Membranes: [-] Uterine Contractions: [-] FHT's: Category: [-] 1 Baseline: [-] Reactive: [-] R Variability: [-] Decels: [-]none EXTREMITIES: No cyanosis or edema, non-tender, without signs of DVT. Assessment and Plan - Diagnosis (1) PROM (premature rupture of membranes) Code(s): O42.90 - Premature rupture of membranes, unspecified as to length of time between rupture and onset of labor, unspecified weeks of gestation Status : Acute - Plan IUP at 34+ wks, PROM, GBBS neg, breech, s/p celestone x1, type 2 DM 2nd dose of celestone today, f/u 24 hr urine can eat, shower, not conrad currently, BR with BRP SCDs, f/u US report Discharge Planning: not a candidate for discharge today - Attending Attestation pt seen by me (1) PROM (premature rupture of membranes) Qualifiers: PROM onset of labor timing: unspecified duration between rupture of membranes and onset of labor PROM gestational age: -third trimester Qualified Code(s): O42.913 - premature rupture of membranes, unspecified as to length of time between rupture and onset of labor, third trimester
[2017-08-16] MEDS: Prenatal Vit/Ca/Iron/Folic Acid Tablet PO SCH (10:23)
[2017-08-16] MEDS: Betamethasone Sod Phos/Acetate Inj 30 MG/5 ML Vial IM SCH (11:06)
[2017-08-16 13:49] LABS: Creatinine 24 Hour,Urine 1.3 gm/24hr (0.63-2.50)
[2017-08-17] MEDS ORDERED: Citric Acid/Sodium Citrate Liq 30 ML UDC PO SCH (08:45)
--- NOTE | 2017-08-17 08:50 | P.OBANTE ---
Subjective Interval History: rare ctx, still lof, has an odor per pt now. good fm. No VB Objective Vital Signs and I&O: Vital Signs 08/16/17 10:18 08/16/17 10:24 08/16/17 11:28 Temperature 98.0 F Pulse Rate 96 H Respiratory Rate 18 17 Blood Pressure 156/92 H 08/16/17 11:30 08/16/17 13:41 08/16/17 17:20 Temperature 98.2 F 98.1 F Pulse Rate 99 H 102 H 90 Respiratory Rate 18 17 Blood Pressure 140/86 156/88 H 143/94 H 08/16/17 18:23 08/16/17 18:25 08/16/17 19:35 Temperature Pulse Rate 90 87 Respiratory Rate 19 18 Blood Pressure 156/87 H 162/81 H 08/16/17 19:36 08/16/17 21:52 08/16/17 23:00 Temperature 98.1 F 98.0 F Pulse Rate 100 H Respiratory Rate 18 Blood Pressure 150/76 H 08/17/17 00:25 08/17/17 04:00 08/17/17 05:15 Temperature 98.6 F 98.1 F Pulse Rate 80 76 74 Respiratory Rate 18 18 Blood Pressure 146/64 H 161/72 H 132/62 08/17/17 06:00 Temperature 97.7 F Pulse Rate Respiratory Rate Blood Pressure Intake & Output 08/16/17 08/17/17 08/17/17 18:59 06:59 18:59 Intake Total 1300 / 1300 2100 / 2100 Balance 1300 / 1300 2100 / 2100 Weight 96.162 kg 97.427 kg Intake: IV 1300 / 1300 2100 / 2100 LR 1000 mL Inj 1,000 ML @ 125 1000 / 1000 2000 / 2000 mls/hr IV.CONT .Q8H [facility] Rx#: [id number] Ampicillin Inj 2,000 MG In NS 300 / 300 100 / 100 Inj 100 ML @ 400 mls/hr IV.SIG Q6H [facility] Rx#:[id number] Lab and Micro Results: Laboratory Results - last 24 hr 08/16/17 08/16/17 08/16/17 11:45 12:17 15:37 POC Glucose 111 H 169 H Ur 24 Hour Volume 3650 Ur Creatinine 24 Hour 1.30 Ur Total Protein 24 Hr 485 H 08/16/17 08/17/17 20:29 06:27 POC Glucose 207 H 97 Ur 24 Hour Volume Ur Creatinine 24 Hour Ur Total Protein 24 Hr Physical Exam: GENERAL: Well-nourished, well-developed patient. CARDIOVASCULAR: Regular rate and rhythm without murmurs, gallops, or rubs. RESPIRATORY: Breath sounds equal bilaterally. No accessory muscle use. ABDOMEN/GI: Abdomen soft, non-tender. Fundus: [-] nontender GENITOURINARY: External Genitalia: intact and normal in appearance Cervix: defer breech Membranes: [-] Uterine Contractions: [-] FHT's: Category: I Baseline: [-] Reactive: [-] Variability: [mod Decels: [-] EXTREMITIES: No cyanosis or edema, non-tender, without signs of DVT. Assessment and Plan - Diagnosis (1) PROM (premature rupture of membranes) Code(s): O42.90 - Premature rupture of membranes, unspecified as to length of time between rupture and onset of labor, unspecified weeks of gestation Status : Acute - Plan IUP at 34+ wks, PROM, GBBS neg, breech, s/p celestone x2, type 2 DM 2nd dose of celestone yesterday Pre-eclampsia mild, r/i with bp and 24 hr urine Breech on imaging yesterday- will be for CD today Discharge Planning: not a candidate for discharge today (1) PROM (premature rupture of membranes) Qualifiers: PROM onset of labor timing: unspecified duration between rupture of membranes and onset of labor PROM gestational age: -third trimester Qualified Code(s): O42.913 - premature rupture of membranes, unspecified as to length of time between rupture and onset of labor, third trimester
[2017-08-17] MEDS ORDERED: ceFAZolin Inj 2,000 MG in Sodium Chlor 0.9% Inj 80 ML IV.SIG SCH (09:00)
[2017-08-17] MEDS: Prenatal Vit/Ca/Iron/Folic Acid Tablet PO SCH (09:10)
[2017-08-17 10:37] LABS: Baso % (Auto) 0.3 % (0.0-2.0); Eos % (Auto) 0.1 % (0.0-4.0); Hematocrit 36.7 % (35.0-46.0); Hemoglobin 12.4 gm/dL (11.6-15.3); Lymph % (Auto) 24.2 % (9.0-44.0); Mean Corpuscular HGB Conc 33.9 % (32.0-36.0); Mean Corpuscular Hemoglobin 27.9 pg (27.0-34.0); Mean Corpuscular Volume 82.2 fL (80.0-100.0); Mean Platelet Volume 10.1 fL (7.0-11.0); Mono # (Auto) 0.7 th/mm3 (0.0-0.9); Neut # (Auto) 8.6 th/mm3 (1.8-7.7); Neut % (Auto) 69.4 % (16.0-70.0); Platelet Count 247 th/mm3 (150-450); Red Blood Count 4.46 mil/mm3 (4.00-5.30); Red Cell Distribution Width 13.3 % (11.6-17.2); White Blood Count 12.4 th/mm3 (4.0-11.0)
[2017-08-17] MEDS ORDERED: Phenylephrine/NS 1000 MCG/10ML Syringe IV.PUSH ONE (12:00)
[2017-08-17] MEDS ORDERED: ceFAZolin 2 GM Premix Inj 2 GM/50 ML PIGGYBACK IV.SIG SCH (12:00)
[2017-08-17] MEDS ORDERED: Morphine Sulfate PF Inj 5 MG/10 ML Ampul ONE (12:42)
[2017-08-17] MEDS ORDERED: Naloxone Inj 0.4 MG/ML Vial IV.PUSH PRN (13:05)
[2017-08-17 14:11] LABS: Cord Arterial Blood HCO3 27.4
[2017-08-17] MEDS ORDERED: Oxytocin 30 Units/500ml Premix 30 UNITS/500 ML BAG IV.SIG ONE (14:22)
[2017-08-17] MEDS ORDERED: Zolpidem Tartrate 5 MG Tablet PO PRN (14:22)
[2017-08-17] MEDS ORDERED: Labetalol HCl Inj 100 MG/20 ML Vial IV.PUSH PRN (14:22)
--- NOTE | 2017-08-17 14:32 | P.OBDELI ---
Procedure Note - Pre Op Diagnosis (1) Severe pre-eclampsia (2) Diabetes in (3) premature rupture of membranes (PPROM) delivered, current hospitalization (4) Double footling breech presentation - Post Op Diagnosis (1) Diabetes in (2) premature rupture of membranes (PPROM) delivered, current hospitalization (3) Severe pre-eclampsia (4) Double footling breech presentation Performed by: Parvin García MD Procedure: Primary Low Transverse Section Indication for Delivery: malposition, Maternal medical problems (PPROM, severe Pre-eclampsia based on BP) Informed Consent Obtained: For anesthesia, For procedure Confirmed Correct: Patient, Procedure, Site, Time-out taken Anesthesia: Spinal Medication Prior to Procedure: As documented in eMAR Monitoring During Procedure: Blood pressure monitoring, Pulse oximetry Urinary Catheter: Inserted using sterile technique, To dependent drainage, ml urine output (150) Sterile Preparation: In usual fashion, With 2% chlorexidine (Hibiclens) Position: Supine with wedge to right side, Supine with safety belt applied - Operative Features Skin Incision: Pfannenstiel Uterine Incision: Low transverse w/knife / blunt ext Membranes Ruptured: Previously, Appearance of fluid (clear) Presentation: Breech Status of Infant: Viable, Cord blood, Umbilical cord, Nursery present Placenta Delivered: Intact, Other (possible abruption) Medications: Antibiotics, Oxytocin Estimated blood loss (mL): 700 Procedure Tolerated: Well Maternal Condition: Stable Baby Condition: Fair Procedure in Detail: Complications: none Counts: Correct x 3 IVF 2000ml Maternal intraoperative findings: normal uterus tubes, and bilateral ovaries. Possible early placental abruption Specimens: cord blood, cord gas, placenta to path and placental cultures Dispo: to pacu then to L&D for postoperative Magnesium due to severe range BP Procedure in detail: After review of informed consent, pt was taken to the OR where spinal anesthesia was administered w/o complication. She had jordan placed in sterile fashion. SCDs to bilateral extremities. Ancef 2 g IV given preincision. Abdomen and perineum were prepped and draped in sterile fashion. A Pfannenstiel skin incision was made with the scalpel and carried down to the underlying layer of fascia with the bovie. The fascia was incised in the midline; this incision was extended bilaterally w Escobar scissors. The superior edge, followed by the inferior edge, of the fascia was grasped with najma clamps, elevated and from the rectus muscles with escobar scissors and bluntly. Peritoneum was entered bluntly. Bladder blade was inserted. A bladder flap was created with Metzenbaum scissors. A low transverse uterine incision was made with the scalpel and extended bluntly. Clear amniotic fluid noted. Double footling breech presentation was noted. The feet were grasped and brought to the level of the hysterorotomy, baby was wrapped in moist towel. Baby was delivered to the level of his hips, the hips were grasped and baby was supported as extraction performed to the level of the scapula. The baby was rotated to deliver the right arm by sweeping it across the body, then rotated to the left to deliver this arm in a similar fashion. The body was supported in a fashion to allow flexion of the head. The head was flexed and brought to the level of the hysterotomy. Pressure was used to deliver the head. Cord blood and gas collected. Delayed cord clamping of 30 seconds was performed. Baby was handed off to team. IV infusion of pitocin was started immediately after the delivery of the infant. The placenta had spontaneously delivered after delayed cord clamping, there was adherent clot on half of the uterine edge, possible early abruption. The uterine cavity was cleared with moistened laparotomy sponges. The uterus was exteriorized and repaired in two layers with number 1 chromic in a running locked fashion followed by an imbricating layer. The posterior cul de sac was irrigated and suctioned. The uterus was noted to be hemostatic. It was returned to the abdomen. The fascia was closed with number 1 vicryl in a running fashion. The peritoneum was closed with 2-0 chromic in a running fashion. Subcutaneous tissue was irrigated and hemostasis obtained w the bovie. The skin was closed with 3-0 monocryl in a subcuticular fashion. A sterile dressing was placed. PT was sent to pacu in stable condition. - : Male, Single Infant Male A Delivery Date: 08/17/17 Delivery Time: 13:34 Weight: 3.27 kg Delivery of : Uneventful score (1 min): 3 score (5 min): 8
[2017-08-17] MEDS ORDERED: Mag Sulf/Water 40 gm/1000 ml 40 GM/1,000 ML BAG IV.CONT SCH (15:00)
[2017-08-17] MEDS ORDERED: Mag Sulf/Water 40 gm/1000 ml 40 GM/1,000 ML BAG IV.CONT ONE (15:05)
[2017-08-17] MEDS ORDERED: Labetalol HCl Inj 100 MG/20 ML Vial ONE (15:05)
[2017-08-17] MEDS ORDERED: Acetaminophen 325 MG Tablet PO PRN (15:05)
[2017-08-17] MEDS ORDERED: Mag Sulf/Water 4 gm/100 ml 100 ML IV.SIG ONE ×2 (15:05→15:30)
[2017-08-17] MEDS ORDERED: Labetalol HCl Inj 100 MG/20 ML Vial IV.PUSH ONE (17:00)
[2017-08-17] MEDS: Insulin NovoLIN Regular Correctional Sugar Inj SQ SCH ×2 (18:39→18:40)
[2017-08-17] MEDS ORDERED: Oxytocin 30 Units/500ml Premix 30 UNITS/500 ML BAG IV.SIG PRN (19:23)
[2017-08-18 05:21] LABS: Hematocrit 34.7 % (35.0-46.0); Mean Corpuscular HGB Conc 34.5 % (32.0-36.0); Mean Corpuscular Hemoglobin 28.5 pg (27.0-34.0); Mean Corpuscular Volume 82.7 fL (80.0-100.0); Mean Platelet Volume 9.6 fL (7.0-11.0); Platelet Count 202 th/mm3 (150-450); Red Cell Distribution Width 12.9 % (11.6-17.2); White Blood Count 10.4 th/mm3 (4.0-11.0)
[2017-08-18 05:51] LABS: Alanine Aminotransferase 25 U/L (9-42); Albumin 2.2 g/dL (3.4-5.0); Alkaline Phosphatase 80 U/L (45-117); Anion Gap 11 meq/L (5-15); Aspartate Aminotransferase 23 U/L (16-38); Blood Urea Nitrogen 4 mg/dL (7-18); Calcium 7.5 mg/dL (8.5-10.1); Chloride 104 meq/L (98-107); Glomerular Filtration Rate Greater Than 89 mL/min (>89); Glucose,Random 100 mg/dL (74-106); Potassium 3.5 meq/L (3.5-5.1); Sodium 138 meq/L (136-145); Total Protein 5.6 g/dL (6.4-8.2); Uric Acid 5.6 mg/dl (2.6-6.0)
--- NOTE | 2017-08-18 08:27 | P.PNOB ---
Subjective Post op day: 1 Interval history: has blurry vision and headache from Magnesium no N, V, wants jordan out and to get up soon Objective Vital Signs/I&O: Vital Signs 08/17/17 14:20 08/17/17 14:39 08/17/17 14:55 Temperature 97.5 F L Pulse Rate 72 72 70 Respiratory Rate 18 20 20 Blood Pressure 151/82 H 155/78 H 162/77 H 08/17/17 15:10 08/17/17 15:25 08/17/17 15:33 Temperature Pulse Rate 84 80 90 Respiratory Rate 20 20 Blood Pressure 159/80 H 171/82 H 157/83 H 08/17/17 15:36 08/17/17 15:41 08/17/17 15:46 Temperature 97.5 F L 97.5 F L Pulse Rate Respiratory Rate Blood Pressure 162/88 H 160/84 H 08/17/17 15:50 08/17/17 16:00 08/17/17 16:51 Temperature 98.8 F Pulse Rate 79 90 Respiratory Rate 18 20 Blood Pressure 162/84 H 153/81 H 08/17/17 16:55 08/17/17 17:00 08/17/17 17:45 Temperature Pulse Rate 89 93 H 88 Respiratory Rate Blood Pressure 158/79 H 155/84 H 146/79 H 08/17/17 18:00 08/17/17 18:20 08/17/17 18:40 Temperature Pulse Rate 86 81 Respiratory Rate 18 Blood Pressure 08/17/17 18:55 08/17/17 19:00 08/17/17 19:55 Temperature 97.8 F Pulse Rate 83 90 91 H Respiratory Rate 20 Blood Pressure 159/89 H 08/17/17 20:55 08/17/17 22:05 08/17/17 22:55 Temperature Pulse Rate 86 95 H 94 H Respiratory Rate Blood Pressure 149/82 H 156/84 H 08/17/17 23:55 08/18/17 00:55 08/18/17 01:00 Temperature Pulse Rate 86 89 Respiratory Rate Blood Pressure 148/77 H 140/74 08/18/17 01:55 08/18/17 02:00 08/18/17 03:00 Temperature Pulse Rate 89 Respiratory Rate 20 16 Blood Pressure 138/80 142/78 H 08/18/17 03:55 08/18/17 04:55 08/18/17 05:00 Temperature Pulse Rate 91 H 87 Respiratory Rate 18 Blood Pressure 145/81 H 141/82 H 08/18/17 06:00 08/18/17 07:40 Temperature Pulse Rate 88 Respiratory Rate 18 Blood Pressure 142/89 H Intake & Output 08/17/17 08/18/17 08/18/17 18:59 06:59 18:59 Weight 97.427 kg Result Diagrams: 08/18/17 04:46 08/18/17 04:46 Other Results: mild edema no reflexes bandage dry Objective Remarks: GENERAL: Well-nourished, well-developed patient. CARDIOVASCULAR: Regular rate and rhythm without murmurs, gallops, or rubs. RESPIRATORY: Breath sounds equal bilaterally. No accessory muscle use. ABDOMEN/GI: Abdomen soft, non-tender, bowel sounds present. Incision: Clean, dry and intact. Fundus: Firm, non-tender at umbilicus. GENITOURINARY: Light to moderate bleeding. EXTREMITIES: No cyanosis or edema, non-tender, without signs of DVT. Medications and IVs: Active Medications Acetaminophen (Tylenol) 650 mg PO Q4H PRN PRN Reason: PAIN SCALE 1 TO 2 Calcium Gluconate (Calcium Gluconate Inj) 1 gm IV.PUSH ONCE PRN PRN Reason: Magnesium toxicity Citric Acid/Sodium Citrate (Sodium Citrate/Citric Acid Liq) 30 ml PO [employer] [facility] Stop: 08/21/17 08:44 Last Admin: 08/17/17 12:09 Dose: 30 ml Dextrose (D50w Vial) 50 ml IV.PUSH UNSCH PRN PRN Reason: PER HYPOGLYCEMIA PROTOCOL Diphenhydramine HCl (Benadryl) 50 mg PO Q6H PRN PRN Reason: MILD TO MODERATE ITCHING Stop: 08/18/17 13:04 Diphenhydramine HCl (Benadryl Inj) 25 mg IV.PUSH Q6H PRN PRN Reason: MILD TO MODERATE ITCHING Stop: 08/18/17 13:04 Diphtheria/Pertussis/Tetanus Vacc (Boostrix Vaccine Inj) 0.5 ml IM .ONCE ONE Stop: 08/18/17 16:01 Glucagon (Glucagon Inj) 1 mg OTHER PRN PRN PRN Reason: for Hypoglycemia Protocol Lactated Ringer's (Lr 1000 Ml Inj) 1,000 mls @ 75 mls/hr IV.CONT .[id number] [facility] Last Admin: 08/17/17 18:41 Dose: Not Given Lactated Ringer's (Lr 1000 Ml Inj) 1,000 mls @ 75 mls/hr IV.CONT .[id number] [facility] Last Admin: 08/18/17 00:59 Dose: 75 mls/hr Lactated Ringer's (Lr 1000 Ml Inj) 1,000 mls @ 100 mls/hr IV.CONT .Q10H [facility] Stop: 08/18/17 15:22 Last Admin: 08/18/17 07:07 Dose: Not Given Oxytocin (Pitocin 30 Units/Ns 500 Ml Premix) 30 units in 500 mls @ 100 mls/hr IV.SIG PRN PRN PRN Reason: Heavy bleeding Stop: 08/18/17 19:22 Magnesium Sulfate (Magnesium Sulfate/Water 40 Gm/1000 Ml Premix) 40 gm in 1, 000 mls @ 50 mls/hr IV.CONT Q24H [facility] Last Admin: 08/17/17 15:39 Dose: 2 gm/hr, 50 mls/hr Insulin Human Regular (Novolin R Supplemental Scale) 0 units SQ ACHS [facility]; Protocol Last Admin: 08/17/17 18:40 Dose: Not Given Measles/Mumps/Rubella Vaccine Live (M-M-R Ii Vaccine Inj) 0.5 ml SQ .ONCE ONE Stop: 08/18/17 16:01 Metformin HCl (Glucophage) 500 mg PO BIDPC [facility] Miscellaneous Information (Misc Nursing Information) 1 each OTHER UNSCH PRN PRN Reason: SEE LABEL COMMENTS Stop: 08/18/17 13:04 Miscellaneous Information (Misc Nursing Information) 1 each OTHER UNSCH PRN PRN Reason: SEE LABEL COMMENTS Stop: 08/18/17 13:04 Naloxone HCl (Narcan Inj) 0.4 mg IV.PUSH UNSCH PRN PRN Reason: SEE LABEL COMMENTS Stop: 08/18/17 13:04 Nifedipine (Procardia Xl) 30 mg PO Q24H [facility] Last Admin: 08/17/17 16:56 Dose: 30 mg Ondansetron HCl (Zofran Odt) 4 mg PO Q6H PRN PRN Reason: NAUSEA OR VOMITING Last Admin: 08/17/17 18:13 Dose: 4 mg Oxycodone/Acetaminophen (Percocet 5/325 Mg) 1 tab PO Q4H PRN PRN Reason: PAIN SCALE 3 TO 5 Oxycodone/Acetaminophen (Percocet 5/325 Mg) 2 tab PO Q4H PRN PRN Reason: PAIN SCALE 6 TO 10 Vit/Calcium/Iron/Folic Ac (Stuartnatal Plus 3) 1 tab PO DAILY [facility] Last Admin: 08/17/17 09:10 Dose: Not Given Senna/Docusate Sodium (Ann-Colace) 2 tab PO Q12H PRN PRN Reason: CONSTIPATION Sodium Chloride (Ns Flush) 2 ml IV.FLUSH PRN PRN PRN Reason: FLUSH AFTER USING IV ACCESS Sodium Chloride (Ns Flush) 2 ml IV.FLUSH BID [facility] Last Admin: 08/18/17 01:01 Dose: Not Given Zolpidem Tartrate (Ambien) 5 mg PO HS PRN PRN Reason: INSOMNIA Assessment and Plan - Diagnosis (1) S/P section Code(s): Z98.891 - History of uterine scar from previous surgery Status: Acute (2) Severe pre-eclampsia Code(s): O14.10 - Severe pre-eclampsia, unspecified trimester Status: Acute (3) Diabetes in Code(s): O24.919 - Unspecified diabetes mellitus in , unspecified trimester Status: Acute (4) premature rupture of membranes (PPROM) delivered, current hospitalization Code(s): O42.919 - premature rupture of membranes, unspecified as to length of time between rupture and onset of labor, unspecified trimester Status: Acute (5) Double footling breech presentation Code(s): O32.8XX0 - Maternal care for other malpresentation of fetus, not applicable or unspecified Status: Acute - Plan IUP at 34+ wks, PROM, GBBS neg, breech, s/p celestone x2, type 2 DM 2nd dose of celestone yesterday Pre-eclampsia mild, r/i with bp and 24 hr urine Breech on imaging yesterday- will be for CD today 08/18/17 Doing well BP still mildly elevated will stop Mag at 12 and remove jordan now can see child after disconnected from everything Discharge Planning: not a candidate for discharge today
[2017-08-18] MEDS: Insulin NovoLIN Regular Correctional Sugar Inj SQ SCH ×3 (09:00→22:11)
[2017-08-18] MEDS: Ibuprofen 600 MG Tablet PO PRN ×2 (12:09→17:45)
[2017-08-18] MEDS ORDERED: Diphtheria/Tetanus/Pertussis Vaccine Inj 0.5 ML Syringe IM ONE (16:00)
[2017-08-18] MEDS ORDERED: Measles/Mumps/Rubella Vaccine Inj 0.5 ML Vial SQ ONE (16:00)
[2017-08-18] MEDS: Senna/Docusate Sodium 8.6/50 MG Tablet PO PRN (21:55)
[2017-08-19] MEDS: Ibuprofen 600 MG Tablet PO PRN ×4 (00:10→19:38)
--- NOTE | 2017-08-19 07:41 | P.PNOB ---
Subjective Post op day: 2 Interval history: pt doing well, +BM this am, pain controlled Objective Vital Signs/I&O: Vital Signs 08/18/17 07:40 08/18/17 07:55 08/18/17 08:00 Temperature Pulse Rate 88 86 Respiratory Rate 17 Blood Pressure 142/89 H 08/18/17 08:25 08/18/17 08:53 08/18/17 09:57 Temperature Pulse Rate 102 H 106 H 108 H Respiratory Rate Blood Pressure 157/93 H 158/89 H 144/98 H 08/18/17 11:00 08/18/17 11:49 08/18/17 11:54 Temperature Pulse Rate 98 H Respiratory Rate 18 18 Blood Pressure 148/89 H 08/18/17 13:52 08/18/17 17:26 08/18/17 20:00 Temperature 97.9 F 98.5 F 98.2 F Pulse Rate 98 H 88 77 Respiratory Rate 18 18 18 Blood Pressure 138/97 H 134/87 137/91 H 08/19/17 00:21 08/19/17 04:50 Temperature 98.3 F 98.2 F Pulse Rate 76 76 Respiratory Rate 18 16 Blood Pressure 138/81 133/70 Result Diagrams: 08/18/17 04:46 08/18/17 04:46 Objective Remarks: GENERAL: Well-nourished, well-developed patient. CARDIOVASCULAR: Regular rate and rhythm without murmurs, gallops, or rubs. RESPIRATORY: Breath sounds equal bilaterally. No accessory muscle use. ABDOMEN/GI: Abdomen soft, non-tender, bowel sounds present. Incision: Clean, dry and intact. Fundus: Firm, non-tender at umbilicus. GENITOURINARY: Light to moderate bleeding. EXTREMITIES: No cyanosis or edema, non-tender, without signs of DVT. Medications and IVs: Active Medications Acetaminophen (Tylenol) 650 mg PO Q4H PRN PRN Reason: PAIN SCALE 1 TO 2 Calcium Gluconate (Calcium Gluconate Inj) 1 gm IV.PUSH ONCE PRN PRN Reason: Magnesium toxicity Citric Acid/Sodium Citrate (Sodium Citrate/Citric Acid Liq) 30 ml PO [employer] [facility] Stop: 08/21/17 08:44 Last Admin: 08/17/17 12:09 Dose: 30 ml Dextrose (D50w Vial) 50 ml IV.PUSH UNSCH PRN PRN Reason: PER HYPOGLYCEMIA PROTOCOL Glucagon (Glucagon Inj) 1 mg OTHER PRN PRN PRN Reason: for Hypoglycemia Protocol Glyburide (Diabeta) 5 mg PO BIDPC [facility] Last Admin: 08/18/17 19:32 Dose: 5 mg Lactated Ringer's (Lr 1000 Ml Inj) 1,000 mls @ 75 mls/hr IV.CONT .[id number] [facility] Last Admin: 08/17/17 18:41 Dose: Not Given Lactated Ringer's (Lr 1000 Ml Inj) 1,000 mls @ 75 mls/hr IV.CONT .[id number] [facility] Last Admin: 08/18/17 00:59 Dose: 75 mls/hr Magnesium Sulfate (Magnesium Sulfate/Water 40 Gm/1000 Ml Premix) 40 gm in 1, 000 mls @ 50 mls/hr IV.CONT Q24H [facility] Last Admin: 08/17/17 15:39 Dose: 2 gm/hr, 50 mls/hr Insulin Human Regular (Novolin R Supplemental Scale) 0 units SQ ACHS [facility]; Protocol Last Admin: 08/18/17 22:11 Dose: 1 units Metformin HCl (Glucophage) 1,000 mg PO BIDPC [facility] Nifedipine (Procardia Xl) 30 mg PO Q24H [facility] Last Admin: 08/18/17 17:46 Dose: 30 mg Ondansetron HCl (Zofran Odt) 4 mg PO Q6H PRN PRN Reason: NAUSEA OR VOMITING Last Admin: 08/17/17 18:13 Dose: 4 mg Oxycodone/Acetaminophen (Percocet 5/325 Mg) 1 tab PO Q4H PRN PRN Reason: PAIN SCALE 3 TO 5 Last Admin: 08/18/17 17:46 Dose: 1 tab Oxycodone/Acetaminophen (Percocet 5/325 Mg) 2 tab PO Q4H PRN PRN Reason: PAIN SCALE 6 TO 10 Last Admin: 08/19/17 06:00 Dose: 2 tab Vit/Calcium/Iron/Folic Ac (Stuartnatal Plus 3) 1 tab PO DAILY [facility] Last Admin: 08/17/17 09:10 Dose: Not Given Senna/Docusate Sodium (Ann-Colace) 2 tab PO Q12H PRN PRN Reason: CONSTIPATION Last Admin: 08/18/17 21:55 Dose: 2 tab Sodium Chloride (Ns Flush) 2 ml IV.FLUSH PRN PRN PRN Reason: FLUSH AFTER USING IV ACCESS Sodium Chloride (Ns Flush) 2 ml IV.FLUSH BID [facility] Last Admin: 08/18/17 21:57 Dose: 2 ml Zolpidem Tartrate (Ambien) 5 mg PO HS PRN PRN Reason: INSOMNIA Assessment and Plan - Diagnosis (1) S/P section Code(s): Z98.891 - History of uterine scar from previous surgery Status: Acute (2) Severe pre-eclampsia Code(s): O14.10 - Severe pre-eclampsia, unspecified trimester Status: Acute (3) Diabetes in Code(s): O24.919 - Unspecified diabetes mellitus in , unspecified trimester Status: Acute (4) premature rupture of membranes (PPROM) delivered, current hospitalization Code(s): O42.919 - premature rupture of membranes, unspecified as to length of time between rupture and onset of labor, unspecified trimester Status: Acute (5) Double footling breech presentation Code(s): O32.8XX0 - Maternal care for other malpresentation of fetus, not applicable or unspecified Status: Acute - Plan IUP at 34+ wks, PROM, GBBS neg, breech, s/p celestone x2, type 2 DM, pre- eclamptic, s/p MgSO4 08/19/17 Doing well BP 133/70 for discharge in am Discharge Planning: not a candidate for discharge today - Attending Attestation pt seen by me
[2017-08-19] MEDS: Prenatal Vit/Ca/Iron/Folic Acid Tablet PO SCH (08:28)
[2017-08-19] MEDS: Senna/Docusate Sodium 8.6/50 MG Tablet PO PRN (17:07)
[2017-08-20] MEDS: Ibuprofen 600 MG Tablet PO PRN ×2 (03:35→10:53)
[2017-08-20] MEDS ORDERED: Labetalol 100 MG Tablet PO SCH (10:00)
[2017-08-20] MEDS: Prenatal Vit/Ca/Iron/Folic Acid Tablet PO SCH (10:31)
--- NOTE | 2017-08-20 11:33 | P.PNOB ---
Subjective Post op day: 3 Interval history: POD#3; stable, Bp 150/90 this am, now on LABETALOL;IMPROVED. Objective Vital Signs/I&O: Vital Signs 08/19/17 15:03 08/19/17 19:39 08/19/17 23:23 Temperature 98.1 F 98.7 F Pulse Rate 86 86 91 H Respiratory Rate 18 18 18 Blood Pressure 152/94 H 157/92 H 148/83 H 08/20/17 03:35 08/20/17 08:00 Temperature 98.1 F 98.4 F Pulse Rate 95 H 93 H Respiratory Rate 18 18 Blood Pressure 146/89 H 155/95 H Result Diagrams: 08/18/17 04:46 08/18/17 04:46 Objective Remarks: GENERAL: Well-nourished, well-developed patient. CARDIOVASCULAR: Regular rate and rhythm without murmurs, gallops, or rubs. RESPIRATORY: Breath sounds equal bilaterally. No accessory muscle use. ABDOMEN/GI: Abdomen soft, non-tender, bowel sounds present. Incision: Clean, dry and intact. Fundus: Firm, non-tender at umbilicus. GENITOURINARY: Light to moderate bleeding. EXTREMITIES: No cyanosis or edema, non-tender, without signs of DVT. Medications and IVs: Active Medications Acetaminophen (Tylenol) 650 mg PO Q4H PRN PRN Reason: PAIN SCALE 1 TO 2 Calcium Gluconate (Calcium Gluconate Inj) 1 gm IV.PUSH ONCE PRN PRN Reason: Magnesium toxicity Citric Acid/Sodium Citrate (Sodium Citrate/Citric Acid Liq) 30 ml PO CO[employer]INATOR [employer] [facility] Stop: 08/21/17 08:44 Last Admin: 08/17/17 12:09 Dose: 30 ml Dextrose (D50w Vial) 50 ml IV.PUSH UNSCH PRN PRN Reason: PER HYPOGLYCEMIA PROTOCOL Glucagon (Glucagon Inj) 1 mg OTHER PRN PRN PRN Reason: for Hypoglycemia Protocol Glyburide (Diabeta) 5 mg PO BIDPC [facility] Last Admin: 08/20/17 10:32 Dose: 5 mg Lactated Ringer's (Lr 1000 Ml Inj) 1,000 mls @ 75 mls/hr IV.CONT .[id number] [facility] Last Admin: 08/17/17 18:41 Dose: Not Given Lactated Ringer's (Lr 1000 Ml Inj) 1,000 mls @ 75 mls/hr IV.CONT .[id number] [facility] Last Admin: 08/18/17 00:59 Dose: 75 mls/hr Magnesium Sulfate (Magnesium Sulfate/Water 40 Gm/1000 Ml Premix) 40 gm in 1, 000 mls @ 50 mls/hr IV.CONT Q24H [facility] Last Admin: 08/17/17 15:39 Dose: 2 gm/hr, 50 mls/hr Insulin Human Regular (Novolin R Supplemental Scale) 0 units SQ ACHS [facility]; Protocol Last Admin: 08/18/17 22:11 Dose: 1 units Labetalol HCl (Trandate) 100 mg PO BID [facility] Last Admin: 08/20/17 11:05 Dose: 100 mg [facility] Last Admin: 08/20/17 10:31 Dose: 1,000 mg Nifedipine (Procardia Xl) 30 mg PO Q24H [facility] Last Admin: 08/19/17 17:07 Dose: 30 mg Ondansetron HCl (Zofran Odt) 4 mg PO Q6H PRN PRN Reason: NAUSEA OR VOMITING Last Admin: 08/17/17 18:13 Dose: 4 mg Oxycodone/Acetaminophen (Percocet 5/325 Mg) 1 tab PO Q4H PRN PRN Reason: PAIN SCALE 3 TO 5 Last Admin: 08/19/17 19:39 Dose: 1 tab Oxycodone/Acetaminophen (Percocet 5/325 Mg) 2 tab PO Q4H PRN PRN Reason: PAIN SCALE 6 TO 10 Last Admin: 08/20/17 08:09 Dose: 2 tab Vit/Calcium/Iron/Folic Ac (Stuartnatal Plus 3) 1 tab PO DAILY [facility] Last Admin: 08/20/17 10:31 Dose: 1 tab Senna/Docusate Sodium (Ann-Colace) 2 tab PO Q12H PRN PRN Reason: CONSTIPATION Last Admin: 08/19/17 17:07 Dose: 2 tab Sodium Chloride (Ns Flush) 2 ml IV.FLUSH PRN PRN PRN Reason: FLUSH AFTER USING IV ACCESS Last Admin: 08/19/17 08:35 Dose: 2 ml Sodium Chloride (Ns Flush) 2 ml IV.FLUSH BID [facility] Last Admin: 08/18/17 21:57 Dose: 2 ml Zolpidem Tartrate (Ambien) 5 mg PO HS PRN PRN Reason: INSOMNIA Assessment and Plan - Diagnosis (1) S/P section Code(s): Z98.891 - History of uterine scar from previous surgery Status: Acute (2) Severe pre-eclampsia Code(s): O14.10 - Severe pre-eclampsia, unspecified trimester Status: Acute (3) Diabetes in Code(s): O24.919 - Unspecified diabetes mellitus in , unspecified trimester Status: Acute (4) premature rupture of membranes (PPROM) delivered, current hospitalization Code(s): O42.919 - premature rupture of membranes, unspecified as to length of time between rupture and onset of labor, unspecified trimester Status: Acute (5) Double footling breech presentation Code(s): O32.8XX0 - Maternal care for other malpresentation of fetus, not applicable or unspecified Status: Acute - Plan IUP at 34+ wks, PROM, GBBS neg, breech, s/p celestone x2, type 2 DM, pre- eclamptic, s/p MgSO4 /2017 pod#3; STABLE, WILL PLAN DISCHARGE HOME ON LABETALOL 100 MG BID and TO RESUME metformin 1000mg daily. Will return to office in 1 week. Discharge Planning: for discharge today
== END 2017-08-20 13:14 | disposition home or self-care (01) ==
LOC: HOBED 09:48 → H2E 10:00 → H1EA 08-18 12:39
PROVIDERS: ADMIT Obstetrics & Gynecology; ATTEND Obstetrics & Gynecology